=== PATIENT | female | born 1965 | race Caucasian/White ===

== ENCOUNTER → 2018-01-02 08:31 | Outpatient (CLI) | payer OTHER, SELFPAY ==
--- NOTE | 2018-01-02 08:33 | HPBD_ITS ---
STUDY: DUAL ENERGY X-RAY ABSORPTIOMETRY / DXA REASON FOR EXAM: Female, 52 years old. The patient is postmenopausal. TECHNIQUE: Bone Mineral Density (BMD) measurements of lumbar spine and bilateral hips were obtained. COMPARISON: None. FINDINGS: Lumbar Spine (L1-L4): g/cm2 (1.057) / T-score (-1.0) / Z-score (-0.3) Findings are suggestive of normal bone density with a low fracture risk. Left Femur Total: g/cm2 (0.999) / T-score (-0.1) / Z-score (0.6) Left Femoral Neck: g/cm2 (0.965) / T-score (-0.5) / Z-score (0.5) Right Femur Total: g/cm2 (0.976) / T-score (-0.3) / Z-score (0.4) Right Femoral Neck: g/cm2 (0.970) / T-score (-0.5) / Z-score (0.5) HPBD/Dexa Bone Density Study (HP) IMPRESSION: The patient is considered normal as outlined below according to World Michael Organization (WHO) criteria with a low fracture risk. Reference Information: The T-score is the number of standard deviations above or below the standard which is normal for young adults at their peak bone mineral density. The World Health Organization (WHO) interprets the T-scores as follows: Above -1 Normal bone density Between -1 and -2.5 Osteopenia Equal to / or below -2.5 Osteoporosis As a practical clinical guideline, osteopenia may be graded as follows: Mild -1 through -1.5 Moderate -1.6 through -2.0 Severe -2.1 through -2.4 The Z-score is the number of standard deviations above or below age-matched controls. A Z-score of less than -1.5 would be considered abnormal. References: 1. NIH Osteoporosis and Related Bone Diseases http://www.osteo.org 2. International Society for Clinical Densitometry http://www.iscd.org 3. National Osteoporosis Foundation http://www.nof.org Electronically Signed: Monty Middleton MD at 11:00 EDT Tel [phone], Service support ,
== END ==
PROVIDERS: Family Provider Internal Medicine; PCP Internal Medicine; Visit Provider Internal Medicine
DX: Z78.0 Asymptomatic menopausal state (principal)
CPT/HCPCS: 77080

== ENCOUNTER → 2018-01-02 11:24 | Outpatient (CLI) | payer OTHER, SELFPAY ==
[2018-01-08 11:30] LABS: HPV HC, High Risk Negative (Negative)
== END ==
PROVIDERS: Visit Provider Obstetrics & Gynecology
DX: Z12.4 Encounter for screening for malignant neoplasm of cervix (principal)
CPT/HCPCS: 87624; 88175; G0145

== ENCOUNTER → 2018-07-14 07:02 | Outpatient (CLI) | payer OTHER, SELFPAY ==
--- NOTE | 2018-07-14 07:05 | BI_ITS ---
MAMMOGRAPHY - BILATERAL SCREENING REASON FOR EXAM: Female, 53 years old. Routine annual screening examination. PERTINENT HISTORY: Mother with breast cancer. Remote right excisional breast biopsy. TECHNIQUE: Digital bilateral breast carine (3D mammographic acquisition) in the CC and MLO projections. 2-D mediolateral oblique (MLO) and craniocaudad (CC) views of both breasts were obtained. CAD: Full Field Digital Mammography with Computer Added Detection was performed. COMPARISON: Comparison is made with prior study dated June 12, 2017 and March 19, 2016. FINDINGS: Breast Composition: The breasts are heterogeneously dense, which may obscure small masses. There are no dominant masses or suspicious calcifications. Once again, a tissue clip marker is seen in the medial retroareolar region of the right breast. No other significant abnormalities are identified. There has been no significant change since the prior study. BI/SCREENING MAMM (CAD), BILAT IMPRESSION: Stable bilateral screening mammogram. Yearly follow-up mammogram recommended. (A) ASSESSMENT CATEGORY: BIRADS Category 1: Negative. A letter regarding these results will be sent to the patient by the facility within 30 days. Approximately 10% of breast cancers are not detected by mammography. A normal mammogram should not delay biopsy of a clinically suspicious abnormality. [id number] Electronically Signed: Monty Middleton MD at 8:59 EDT Tel [phone], Service support ,
== END ==
PROVIDERS: Family Provider Internal Medicine; PCP Internal Medicine; Referring Provider Obstetrics & Gynecology; Visit Provider Obstetrics & Gynecology
DX: Z12.31 Encounter for screening mammogram for malignant neoplasm of breast (principal)
CPT/HCPCS: 77063; 77067

== ENCOUNTER → 2019-03-24 12:44 | Outpatient (CLI) | payer SELFPAY ==
--- NOTE | 2019-03-24 12:50 | CT_ITS ---
STUDY: CARDIAC CALCIUM SCORING - CT CHEST REASON FOR EXAM: Female, 53 years old. Hyperlipidemia RADIATION DOSAGE (If Supplied By Facility): CTDIvol = ( 12 ) mGy, DLP = ( 171 ) mGycm TECHNIQUE: Axial non-enhanced images were acquired through the heart for the sole purpose of measuring coronary artery calcium. Individualized dose optimization techniques were used for this CT. COMPARISON: None. FINDINGS: Visualized surrounding anatomy: Normal. Left Main Coronary Artery: 0 Left Anterior Descending Artery: 0 Left Circumflex Artery: 0 Right Coronary Artery: 0 Total Calcium Score: 0 CT/Limited Chest CT w/CCTA IMPRESSION: A Calcium Score of 0 places the patient in the approximate 25th percentile, based on the [employer] data calculator. Please go to: [email or web address]-nhlbi.org/Calcium/input.aspx , for a description of the calculator. Electronically Signed: Jase Serna, at 15:12 EDT Tel , Service support ,
[2019-03-24 12:58] VITALS: BP 93/47; PULSE 52; RESP 14; O2SAT 99; BMI 25.7
--- NOTE | 2019-03-24 17:36 | CA.SCORE ---
Calcium Scoring Date of Study:: 03/24/19 Coronary Calcium Scoring: High-resolution Computed Tomographic imaging of the chest was performed on 03/24/2019 with particular attention paid to the coronary arteries. Images from the examination were analyzed for the presence and extent of coronary artery calcification , using coronary calcium quantification software. The patient tolerated the procedure well and there were no complications. The results of the coronary calcification analysis are provided below. - Findings Left Main (LM): 0 Left Anterior Descending (LAD): 0 Left Circumflex (LCX): 0 Right Coronary Artery (RCA): 0 Total Agatston Score: 0 Percentile Rankin - Percentile rankin%: Indicative of 25% of the people of the same gender/similar age had the same or lower scores - Conclusion Calcium Scoring Interpretation: Calcium Score Interpretation 0 No identifiable atherosclerotic plaque. Very low cardiovascular disease risk. <5% chance of presence coronary artery disease A Negative Examination 1-10 Minimal Plaque burden. Significant coronary artery disease very unlikely. 11-100 Mild plaque burden. Likely mild or minimal coronary atherosclerosis. 101-400 Moderate plaque burden Moderate non-obstructive coronary artery disease highly likely. Over 400 Extensive plaque burden. High likelihood of at least one significant coronary stenosis (>50% diameter) Calcium Score: 0 Negative Examination - To new cardiovascular risk factor evaluation/care as deemed appropriate.
== END ==
PROVIDERS: Family Provider Internal Medicine; PCP Internal Medicine; Referring Provider Internal Medicine; Visit Provider Internal Medicine
DX: E78.5 Hyperlipidemia, unspecified (principal)
CPT/HCPCS: 75571; 76380

== ENCOUNTER → 2019-07-23 16:38 | Outpatient (CLI) | payer OTHER, SELFPAY ==
[2019-03-24 12:58] VITALS: BMI 25.7
--- NOTE | 2019-07-23 16:41 | BI_ITS ---
BILATERAL DIGITAL MAMMOGRAM WITH TOMOSYNTHESIS: Mediolateraloblique and craniocaudal views demonstrate no evidence of dominant parenchymal masses. No cluster of microcalcifications or architectural distortion is seen. No evidence of skin thickening is identified. A biopsy clip is noted in the right breast. There has been no significant change since 07/14/2018. Breast Density: The breast tissue is extremely dense which may lower the sensitivity of mammography. CAD was used to assist in final assessment. BI/SCREEN MAMM (CAD) W/ROXANNA BILAT IMPRESSION: NORMAL MAMMOGRAM BILATERALLY.) ASSESSMENT CATEGORY: FINAL ASSESSMENT: BI-RAD CATEGORY II (BENIGN FINDING) YEARLY MAMMOGRAPHY RECOMMENDED Approximately 10% of breast cancers are not detected by mammography. A normal mammogram should not delay biopsy of a clinically suspicious abnormality. [id number] Electronically Signed: Bhupendra Cassidy, at 18:04 EDT Tel , Service support ,
== END ==
PROVIDERS: Family Provider Internal Medicine; PCP Internal Medicine; Referring Provider Obstetrics & Gynecology; Visit Provider Obstetrics & Gynecology
DX: Z12.31 Encounter for screening mammogram for malignant neoplasm of breast (principal)
CPT/HCPCS: 77063; 77067

== ENCOUNTER → 2020-03-25 07:57 | Outpatient (CLI) | payer OTHER, SELFPAY ==
[2019-03-24 12:58] VITALS: BMI 25.7
--- NOTE | 2020-03-25 07:59 | VDLE_ITS ---
Reason For Study: Rt leg swelling RIGHT CFV is compressible, spontaneous, phasic, competent and demonstrates normal augmentation. FV is compressible, spontaneous, phasic, competent and demonstrates normal augmentation. POP V is compressible, spontaneous, phasic, competent and demonstrates normal augmentation. T/P Trunk is compressible. PTV is compressible. RT PerV is compressible. SFJ is competent and measures 0.58 x 0.66 cm. GSV proximal thigh measures 0.29 x 0.29 cm. GSV at knee measures 0.30 x 0.30 cm. GSV INCOMPETENT throughout for greater than 0.5 seconds. ASV proximal thigh is INCOMPETENT for greater than 0.5 seconds and measures 0.24 x 0.23 cm. SSV at junction is competent and measures 0.06 x 0.06 cm. Procedure Exam performed in department. A preliminary report was called and/or faxed to [facility]. Interpretation Summary Deep veins of the right lower extremity are patent and compressible segmentally. There is no evidence of right lower extremity deep vein thrombosis. Valvular competence appears intact within the proximal deep venous system on the right . The right great saphenous vein appears patent and compressible segmentally. The right sapheno-femoral junction is competent . The right great saphenous vein appears segmentally incompetent. The right small saphenous vein is patent and competent. The right accessory saphenous vein in the proximal thigh is incompetent. Ordering Physician: Alana Preciado Referring Physician: Alana Preciado Performed By: Danielle Pan RVT
== END ==
PROVIDERS: PCP Internal Medicine; Referring Provider Internal Medicine; Visit Provider Internal Medicine
DX: M79.89 Other specified soft tissue disorders (principal)
CPT/HCPCS: 93971

== ENCOUNTER → 2020-07-28 07:21 | Outpatient (CLI) | payer OTHER, SELFPAY ==
[2019-03-24 12:58] VITALS: BMI 25.7
--- NOTE | 2020-07-28 07:23 | BI_ITS ---
MAMMOGRAPHY - BILATERAL SCREENING REASON FOR EXAM: Female, 55 years old. Routine annual screening examination. PERTINENT HISTORY: Mother with breast cancer. Right excisional breast biopsy. TECHNIQUE: Digital bilateral breast roxanna (3D mammographic acquisition) in the CC and MLO projections. 2-D mediolateral oblique (MLO) and craniocaudad (CC) views of both breasts were obtained. CAD: Full Field Digital Mammography with Computer Added Detection was performed. COMPARISON: Comparison is made with prior study dated 07/23/2019 and 07/14/2018. FINDINGS: Breast Composition: The breasts are extremely dense, which lowers the sensitivity of mammography. There are no dominant masses or suspicious calcifications. A tissue clip marker is seen in the central slightly medial aspect of the right breast anteriorly. No other significant abnormalities are identified. There has been no significant change since the prior study. BI/SCREEN MAMM (CAD) W/ROXANNA BILAT IMPRESSION: Stable bilateral screening mammogram. Yearly follow-up mammogram recommended. (A) ASSESSMENT CATEGORY: BIRADS Category 2: Benign. A letter regarding these results will be sent to the patient by the facility within 30 days. Approximately 10% of breast cancers are not detected by mammography. A normal mammogram should not delay biopsy of a clinically suspicious abnormality. [id number] Electronically Signed: Monty Middleton, at 8:40 EDT , Service support ,
== END ==
PROVIDERS: PCP Internal Medicine; Referring Provider Obstetrics & Gynecology; Visit Provider Obstetrics & Gynecology
DX: Z12.31 Encounter for screening mammogram for malignant neoplasm of breast (principal)
CPT/HCPCS: 77063; 77067